=== PATIENT | female | born 1990 | race Hispanic/Latino ===

== ENCOUNTER 2019-01-31 16:29 | Observation (INO) | payer OTHER ==
[~2019-01-31] VITALS: Ht 157.5 cm; Wt 131.5 kg
[2019-01-31 17:49] LABS: APPEARANCE,URINE Clear (CLEAR); BILIRUBIN,URINE Negative (NEGATIVE); COLOR,URINE Yellow (YELLOW); GLUCOSE, URINE (UA) Negative (NEGATIVE); KETONES,URINE Negative (NEGATIVE); LEUKOCYTE ESTERASE ,URINE Negative (NEGATIVE); NITRATE,URINE Negative (NEGATIVE); OCCULT BLOOD,URINE Negative (NEGATIVE); PH,URINE 7.5 (5.0-8.0); PROTEIN,URINE Negative (NEGATIVE)
[2019-01-31 18:40] LABS: BASOPHILS % (AUTO) 0.3 % (0.0-5.0); EOSINOPHILS % (AUTO) 1.5 % (0.0-8.0); HEMATOCRIT 32.7 % (36-48); LYMPHOCYTES % (AUTO) 16.1 % (21.0-51.0); MEAN CORPUSCULAR HEMOGLOBIN 27.1 pg (27.0-33.0); MEAN CORPUSCULAR VOLUME 82.1 fL (79-99); MONOCYTES % (AUTO) 6.2 % (3.0-13.0); NEUTROPHILS % (AUTO) 75.9 % (40.0-77.0); NUCLEATED RED BLOOD CELLS 0.1 % (0.0-0.19); PLATELET COUNT (AUTO) 199 K/uL (130-400); RED BLOOD CELL COUNT(AUTO) 3.98 MIL/uL (4.00-5.50)
[2019-01-31 19:03] LABS: CREATININE 0.4 mg/dL (0.5-1.5); POTASSIUM 3.9 mmol/L (3.5-5.1)
[2019-01-31 19:08] LABS: ALBUMIN 2.2 g/dL (3.5-5.0); BILIRUBIN,TOTAL 0.3 mg/dL (0.2-1.0); TOTAL PROTEIN, SERUM 6.2 g/dL (6.0-8.3); URIC ACID 3.8 mg/dL (2.6-7.2)
[2019-01-31 19:57] LABS: INR 0.89 (0.85-1.15); PARTIAL THROMBOPLASTIN TIME 26.1 SEC (26.3-35.5); PROTHROMBIN TIME 9.4 SEC (9.6-11.6)
[2019-01-31] MEDS ORDERED: LACTATED RINGERS 1000ML 1,000 ML IV PRN (20:16)
[2019-01-31] MEDS ORDERED: PHARMACY COMMUNICATION MISC SCH (20:30)
[2019-01-31 20:55] LABS: AMPHET/METH SCREEN,URINE NEGATIVE (NEGATIVE); BARBITURATE SCREEN, URINE NEGATIVE (NEGATIVE); BENZODIAZEPINES SCREEN,URINE NEGATIVE (NEGATIVE); CANNABINOID SCREEN,URINE NEGATIVE (NEGATIVE); COCAINE SCREEN,URINE NEGATIVE (NEGATIVE); OPIATE SCREEN,URINE NEGATIVE (NEGATIVE); PHENCYCLIDINE SCREEN,URINE NEGATIVE (NEGATIVE)
[2019-02-01 07:19] LABS: RAPID PLASMA REAGIN NONREACTIVE (NONREACTIVE)
== END 2019-01-31 21:16 | disposition home or self-care (01) ==
LOC: EDH 16:29 → LDH 16:52
PROVIDERS: ADMIT Obstetrics & Gynecology; ATTEND Obstetrics & Gynecology
DX: O12.03 Gestational edema, third trimester (principal); O26.893 Other specified pregnancy related conditions, third trimester; R10.31 Right lower quadrant pain; R10.32 Left lower quadrant pain; Z3A.37 37 weeks gestation of pregnancy; Z79.899 Other long term (current) drug therapy
CPT/HCPCS: 36415; 76805; 80053; 80305; 81003; 84550; 85025; 85384; 85610; 85730; 86592; 86701; 86850; 86900; 86901; 87340 ×2; 87390; 99284; G0378 ×4

== ENCOUNTER 2019-02-17 08:06 | Inpatient (IN) | payer OTHER ==
[~2019-02-17] VITALS: Ht 154.9 cm; Wt 125.2 kg
[2019-02-17] MEDS ORDERED: LACTATED RINGERS 1000ML 1,000 ML IV PRN (08:52)
[2019-02-17] MEDS ORDERED: LACTATED RINGERS 1000ML 1,000 ML IV ONE (08:56)
[2019-02-17] MEDS ORDERED: AMPICILLIN 2GM+NS 100ML 100 ML IV ONE (08:56)
[2019-02-17] MEDS ORDERED: AMPICILLIN 2GM+NS 100ML 100 ML IV SCH (09:00)
[2019-02-17 09:08] LABS: APPEARANCE,URINE Clear (CLEAR); BASOPHILS % (AUTO) 0.4 % (0.0-5.0); BILIRUBIN,URINE Negative (NEGATIVE); COLOR,URINE Yellow (YELLOW); GLUCOSE, URINE (UA) Negative (NEGATIVE); HEMATOCRIT 34.1 % (36-48); KETONES,URINE Negative (NEGATIVE); LEUKOCYTE ESTERASE ,URINE Small (NEGATIVE); LYMPHOCYTES % (AUTO) 14.3 % (21.0-51.0); MEAN CORPUSCULAR HEMOGLOBIN 27.2 pg (27.0-33.0); MEAN CORPUSCULAR HGB CONC 34.1 g/dL (32.0-36.0); MEAN CORPUSCULAR VOLUME 79.7 fL (79-99); MONOCYTES % (AUTO) 5.5 % (3.0-13.0); NEUTROPHILS % (AUTO) 78.8 % (40.0-77.0); NITRATE,URINE Negative (NEGATIVE); NUCLEATED RED BLOOD CELLS 0.1 % (0.0-0.19); OCCULT BLOOD,URINE Trace (NEGATIVE); PLATELET COUNT (AUTO) 202 K/uL (130-400); PROTEIN,URINE Negative (NEGATIVE); RED BLOOD CELL COUNT(AUTO) 4.27 MIL/uL (4.00-5.50); RED CELL DISTRIBUTION WIDTH 14.7 % (11.0-15.5)
[2019-02-17 09:19] LABS: BACTERIA,URINE Rare /HPF (None Seen); RBC,URINE 0-1 /HPF (0-1); SQUAMOUS EPITHELIAL CELL,UR Few /HPF (0-2)
[2019-02-17] MEDS ORDERED: CEFAZOLIN SODIUM 1 GM VIAL IVP PRN (09:45)
[2019-02-17] MEDS ORDERED: LACTATED RINGERS 1000ML 1,000 ML IV SCH (09:45)
[2019-02-17 09:46] LABS: INR 0.88 (0.85-1.15); PROTHROMBIN TIME 9.3 SEC (9.6-11.6)
[2019-02-17 09:58] LABS: CREATININE 0.5 mg/dL (0.5-1.5); POTASSIUM 3.9 mmol/L (3.5-5.1)
[2019-02-17 10:03] LABS: ALBUMIN 2.5 g/dL (3.5-5.0); BILIRUBIN,TOTAL 0.4 mg/dL (0.2-1.0); TOTAL PROTEIN, SERUM 6.8 g/dL (6.0-8.3); URIC ACID 4.4 mg/dL (2.6-7.2)
[2019-02-17] MEDS ORDERED: DURAMORPH PF1 MG/ML 10ML AMP IV ONE (10:05)
[2019-02-17] MEDS ORDERED: CEFEPIME HCL 1 GM VIAL IVP ONE (10:20)
[2019-02-17] MEDS ORDERED: DEXTROSE 5 %-0.45 % NACL 1,000 ML IV PRN (11:00)
[2019-02-17] MEDS ORDERED: PROMETHAZINE HCL 25 MG/ML 1ML AMPULE IM PRN (11:00)
[2019-02-17] MEDS ORDERED: OXYTOCIN-LR 20 UNITS/1000 ML 1,000 ML IV PRN (11:00)
[2019-02-17] MEDS ORDERED: MEPERIDINE-PF 75 MG/ML SYG IM PRN (11:00)
[2019-02-17] MEDS ORDERED: SODIUM CHLORIDE 0.9% 10 ML VIAL IVP PRN (11:00)
[2019-02-17] MEDS ORDERED: EPHEDRINE SULFATE 50 MG/ML AMPULE ONE (11:07)
[2019-02-17] MEDS ORDERED: AMPICILLIN 1GM+NS 50ML 50 ML IV SCH (13:00)
[2019-02-17] MEDS ORDERED: IBUPROFEN 800 MG TAB ONE (18:13)
[2019-02-17] MEDS ORDERED: IBUPROFEN 800 MG TAB PO PRN (18:15)
[2019-02-17] MEDS ORDERED: NALOXONE HCL 0.4 MG/1 ML ML IVP PRN ×3 (18:45)
[2019-02-17] MEDS ORDERED: DiphenhydrAMINE HCL 50 MG/ML VIAL IVP PRN (18:45)
[2019-02-17] MEDS ORDERED: EPHEDRINE SULFATE 50 MG/ML AMPULE IVP PRN (18:45)
[2019-02-17] MEDS ORDERED: ONDANSETRON HCL 4 MG/2 ML VIAL IVP PRN (18:45)
--- NOTE | 2019-02-17 20:05 | NUR ---
RECEIVED PT. IN BED AWAKE, ALERT AND ORIENTED X3 LYING SEMI VALDIVIA'S POSITION. SIGNIFICANT OTHER PRESENT AT BEDSIDE. JUAN DELGADO; ANMOL IN NURSERY HERE IN THE ROOM AND ASSESSED THE . PHYSICAL ASSESSMENT DONE TO THE PT.
--- NOTE | 2019-02-17 20:15 | NUR ---
PING CARE DONE. SMALL LOCHIA RUBRA NOTED. FUNDUS FIRM AT THE LEVEL OF THE UMBILICUS. NEW PAD APPLIED. PT. IS COMFORTABLE AT THIS TIME.
[2019-02-17 20:21] VITALS: BP 135/76
--- NOTE | 2019-02-17 22:00 | NUR ---
PT. IS SLEEPING WITHOUT DISTRESS.
--- NOTE | 2019-02-17 23:57 | NUR ---
PT. IS AWAKE AND THE BABY ON THE RIGHT BREAST WITH GOOD LATCH. NO COMPLAINTS OF PAIN ON THE PT.
[2019-02-18] VITALS (8 sets, daily range): BP systolic 100–148; BP diastolic 52–91
--- NOTE | 2019-02-18 01:15 | NUR ---
PT IS C/O PAIN AND SWELLING ON HER IV SITE. DISCONTINUED THE IV AND CLEANSED THE SITE. PT. TOLERATED THE PROCEDURE WELL.
--- NOTE | 2019-02-18 01:20 | NUR ---
RESTART IV LINE ON THE RIGHT ARM BY CONRADO OLMEDO RN. PER STERILE TECHNIQUE. PT. TOLERATED THE PROCEDURE WELL.
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
--- NOTE | 2019-02-18 06:00 | NUR ---
LAB FOR CBC DRAWN BY POCKET GRINDER OPERATOR. PT. TOLERATED THE PROCEDURE WELL.
[2019-02-18 06:14] LABS: HEPATITIS Bs ANTIGEN SCREEN P Negative (Negative)
[2019-02-18 06:43] LABS: HEMATOCRIT 30.2 % (36-48); MEAN CORPUSCULAR HEMOGLOBIN 26.9 pg (27.0-33.0); MEAN CORPUSCULAR HGB CONC 33.1 g/dL (32.0-36.0); MEAN CORPUSCULAR VOLUME 81.2 fL (79-99); PLATELET COUNT (AUTO) 174 K/uL (130-400); RED BLOOD CELL COUNT(AUTO) 3.72 MIL/uL (4.00-5.50); RED CELL DISTRIBUTION WIDTH 14.5 % (11.0-15.5); WHITE BLOOD COUNT (AUTO) 11.3 K/uL (4.8-10.8)
--- NOTE | 2019-02-18 07:05 | NUR ---
REPORT GIVEN TO MAGALIE MCDONALD; RN
[2019-02-18] MEDS ORDERED: BISACODYL 10 MG SUPP.RECT RC PRN (07:30)
[2019-02-18] MEDS ORDERED: DIPHENHYDRAMINE HCL 25 MG CAPSULE PO PRN (07:30)
[2019-02-18] MEDS ORDERED: LANOLIN 30GM OINTMENT TP PRN (07:30)
[2019-02-18] MEDS ORDERED: HYDROCODONE/ACETAMINOPHEN 5/325 MG TAB PO PRN (07:30)
[2019-02-18] MEDS ORDERED: ACETAMINOPHEN EXTRA STRENGTH 500 MG TABLET PO PRN (07:30)
[2019-02-18 08:52] LABS: RAPID PLASMA REAGIN NONREACTIVE (NONREACTIVE)
[2019-02-18] MEDS ORDERED: DIPH,PERTUSS(ACELL),TET VAC/PF 0.5 ML VIAL IM ONE (09:00)
[2019-02-18] MEDS ORDERED: MEASLES/MUMPS/RUBELLA VACCINE, LIVE 0.5 ML/VIAL SQ ONE (09:00)
[2019-02-18] MEDS: SIMETHICONE 80 MG TAB.CHEW PO PRN ×3 (10:54→21:50)
[2019-02-18] MEDS: DOCUSATE SODIUM 100 MG CAP PO SCH ×2 (10:54→21:50)
[2019-02-18] MEDS: IBUPROFEN 600 MG TABLET PO PRN ×2 (10:56→23:11)
[2019-02-18] MEDS ORDERED: PNV1TABL17 PO (11:18)
[2019-02-18] MEDS: ACETAMINOPHEN-CODEINE 300/30MG TAB PO PRN (20:10)
[2019-02-19 03:34] VITALS: BP 111/68
[2019-02-19] MEDS: DOCUSATE SODIUM 100 MG CAP PO SCH (07:46)
[2019-02-19] MEDS: SIMETHICONE 80 MG TAB.CHEW PO PRN (07:46)
[2019-02-19 07:51] VITALS: BP 131/75
[2019-02-19] MEDS: ACETAMINOPHEN-CODEINE 300/30MG TAB PO PRN (07:51)
--- NOTE | 2019-02-19 10:14 | NUR ---
INSTRUCTIONS DISCHARGE INSTRUCTIONS READ AND EXPLAINED TO PATIENT. PRESCRIPTION FOR TYLENOL #3 HANDED TO PATIENT. QUESTIONS INVITED AND ANSWERED. INCISION CARE REVIEWED WITH PATIENT. PATIENT VERBALIZED UNDERSTANDING.
[2019-02-19 11:03] VITALS: BP 146/74
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
== END 2019-02-19 11:40 | disposition home or self-care (01) | DRG 788 ==
LOC: EDH 08:06 → LDH 08:07 → OBSVTOIN 08:07 → WSH 18:31
PROVIDERS: ADMIT Obstetrics & Gynecology; ATTEND Obstetrics & Gynecology
PROC: 10D00Z1 Extraction of Products of Conception, Low, Open Approach (ICD-10-PCS; principal; 2019-02-17 10:27)
DX: O36.63X0 Maternal care for excessive fetal growth, third trimester, not applicable or unspecified (principal); Z37.0 Single live birth; Z3A.39 39 weeks gestation of pregnancy; Z28.21 Immunization not carried out because of patient refusal
CPT/HCPCS: 36415; 76805; 80053; 81001; 84550; 85025; 85027; 85384; 85610; 85730; 86592; 86701; 86850; 86900; 86901; 87340; 87390; A4344; A4450; A4606; G0378; J0290; J0690; J0692; J2274; J2550; J2590; J3490; J7120

== ENCOUNTER 2021-12-19 02:26 | Inpatient (IN) | payer MEDICAID, OTHER ==
[~2021-12-19] VITALS: Ht 160 cm; Wt 136.1 kg
[~2021-12-19 02:26] MED LIST: PNV1TABL17 PO
[2021-12-19] MEDS ORDERED: LACTATED RINGERS 1000ML 1,000 ML IV SCH ×2 (03:00→04:00)
[2021-12-19 03:12] LABS: AMPHET/METH SCREEN,URINE NEGATIVE (NEGATIVE); BARBITURATE SCREEN, URINE NEGATIVE (NEGATIVE); BENZODIAZEPINES SCREEN,URINE NEGATIVE (NEGATIVE); CANNABINOID SCREEN,URINE NEGATIVE (NEGATIVE); COCAINE SCREEN,URINE NEGATIVE (NEGATIVE); OPIATE SCREEN,URINE NEGATIVE (NEGATIVE); PHENCYCLIDINE SCREEN,URINE NEGATIVE (NEGATIVE)
[2021-12-19 03:13] LABS: APPEARANCE,URINE CLEAR (CLEAR); BILIRUBIN,URINE NEGATIVE (NEGATIVE); COLOR,URINE YELLOW (YELLOW); GLUCOSE, URINE (UA) NEGATIVE (NEGATIVE); KETONES,URINE NEGATIVE (NEGATIVE); LEUKOCYTE ESTERASE ,URINE NEGATIVE (NEGATIVE); NITRATE,URINE NEGATIVE (NEGATIVE); OCCULT BLOOD,URINE MODERATE (NEGATIVE); PROTEIN,URINE NEGATIVE (NEGATIVE); UROBILINOGEN,URINE 0.2 mg/dL (0.2-1.0)
[2021-12-19 03:18] LABS: BACTERIA,URINE Few /HPF (None Seen); RBC,URINE 0-1 /HPF (0-1); SQUAMOUS EPITHELIAL CELL,UR Moderate /HPF (0-2)
[2021-12-19] MEDS ORDERED: LACTATED RINGERS 1000ML 1,000 ML IV PRN (03:30)
[2021-12-19 03:56] LABS: BASOPHILS % (AUTO) 0.2 % (0.0-5.0); EOSINOPHILS % (AUTO) 1.3 % (0.0-8.0); HEMATOCRIT 34.3 % (36-48); LYMPHOCYTES % (AUTO) 16.5 % (21.0-51.0); MEAN CORPUSCULAR HEMOGLOBIN 27.4 pg (27.0-33.0); MEAN CORPUSCULAR HGB CONC 33.8 g/dL (32.0-36.0); MEAN CORPUSCULAR VOLUME 81.1 fL (79-99); MONOCYTES % (AUTO) 8.2 % (3.0-13.0); NEUTROPHILS % (AUTO) 73.2 % (40.0-77.0); PLATELET COUNT (AUTO) 241 K/uL (130-400); RED BLOOD CELL COUNT(AUTO) 4.23 MIL/uL (4.00-5.50); WHITE BLOOD COUNT (AUTO) 9.3 K/uL (4.8-10.8)
[2021-12-19] MEDS ORDERED: CEFAZOLIN SODIUM 1 GM VIAL IVP PRN (04:00)
[2021-12-19 04:05] LABS: CREATININE 0.5 mg/dL (0.5-1.5); POTASSIUM 3.8 mmol/L (3.5-5.1)
[2021-12-19 04:06] LABS: INR 0.93 (0.85-1.15); PROTHROMBIN TIME 9.5 SEC (9.6-11.6)
[2021-12-19 04:08] LABS: PARTIAL THROMBOPLASTIN TIME 25.9 SEC (26.3-35.5)
[2021-12-19 04:10] LABS: ALBUMIN 2.4 g/dL (3.5-5.0); TOTAL PROTEIN, SERUM 6.6 g/dL (6.0-8.3); URIC ACID 3.6 mg/dL (2.6-7.2)
[2021-12-19 06:20] VITALS: BP 130/63
[2021-12-19] MEDS: TERBUTALINE SULFATE VIAL 1MG/ML SQ SCH ×2 (07:41→20:20)
[2021-12-19] MEDS ORDERED: OXYTOCIN-LR 20 UNITS/1000 ML 2,000 ML IV ONE (07:52)
[2021-12-19] MEDS ORDERED: MORPHINE PF 100MG/10ML AMP IV ONE (09:01)
[2021-12-19] MEDS ORDERED: FENTANYL CITRATE PF 50 MCG/1 ML 2ML VIAL ONE (09:01)
[2021-12-19] MEDS ORDERED: OXYTOCIN 10 USP UNITS/ML ONE (09:36)
[2021-12-19] MEDS ORDERED: ONDANSETRON 4MG INJ ONE (09:37)
[2021-12-19] MEDS ORDERED: PHENYLEPHRINE HCL 10 MG/ML 1ML VIAL IV ONE (10:14)
[2021-12-19] MEDS ORDERED: NALOXONE HCL 0.4 MG/1 ML ML IVP PRN ×3 (11:00)
[2021-12-19] MEDS ORDERED: LORATADINE 10 MG TABLET PO PRN (11:00)
[2021-12-19] MEDS ORDERED: ONDANSETRON 4MG INJ IVP PRN (11:00)
[2021-12-19] MEDS ORDERED: CALDOLOR 800MG+NS 250ML 250 ML IV PRN (11:00)
[2021-12-19] MEDS ORDERED: DiphenhydrAMINE HCL 50 MG/ML VIAL IVP PRN (11:00)
[2021-12-19] MEDS ORDERED: MEPERIDINE-PF 25 MG/ML SYG IV PRN (11:00)
[2021-12-19] MEDS ORDERED: EPHEDRINE SULFATE 50 MG/ML AMPULE IVP PRN (11:00)
[2021-12-19] MEDS ORDERED: MEPERIDINE-PF 75 MG/ML SYG IM PRN (12:00)
[2021-12-19] MEDS ORDERED: PROMETHAZINE HCL 25 MG/ML 1ML AMPULE IM PRN (12:00)
[2021-12-19] MEDS ORDERED: 0.9%NACL 10ML VIAL IVP PRN (12:00)
[2021-12-19] MEDS ORDERED: OXYTOCIN-LR 20 UNITS/1000 ML 1,000 ML IV PRN (12:00)
[2021-12-19 14:51] VITALS: BP 121/81
[2021-12-19 14:59] LABS: RAPID PLASMA REAGIN NONREACTIVE (NONREACTIVE)
[2021-12-19] MEDS: ACETAMINOPHEN WITH CODEINE 1 TAB TAB PO PRN (15:43)
[2021-12-19 15:45] VITALS: BP 114/77
[2021-12-19 15:51] VITALS: BP 120/78
[2021-12-19] MEDS: DEXTROSE 5 %-0.45 % NACL 1,000 ML IV PRN (18:25)
[2021-12-19 20:10] VITALS: BP 118/58
[2021-12-19 23:06] VITALS: BP 120/61
[2021-12-20] MEDS: ACETAMINOPHEN WITH CODEINE 1 TAB TAB PO PRN ×4 (00:45→20:58)
[2021-12-20] MEDS: DEXTROSE 5 %-0.45 % NACL 1,000 ML IV PRN (02:06)
[2021-12-20 03:10] VITALS: BP 115/53
[2021-12-20 06:50] LABS: HEMATOCRIT 25.4 % (36-48); MEAN CORPUSCULAR HEMOGLOBIN 26.3 pg (27.0-33.0); MEAN CORPUSCULAR HGB CONC 31.9 g/dL (32.0-36.0); MEAN CORPUSCULAR VOLUME 82.5 fL (79-99); RED BLOOD CELL COUNT(AUTO) 3.08 MIL/uL (4.00-5.50); RED CELL DISTRIBUTION WIDTH 14.4 % (11.0-15.5); WHITE BLOOD COUNT (AUTO) 10.7 K/uL (4.8-10.8)
[2021-12-20 07:50] VITALS: BP 115/61
[2021-12-20] MEDS ORDERED: BISACODYL 10 MG SUPP.RECT RC PRN (08:30)
[2021-12-20] MEDS ORDERED: ACETAMINOPHEN 500 MG TABLET PO PRN (08:30)
[2021-12-20] MEDS ORDERED: LANOLIN 30GM OINTMENT TP PRN (08:30)
[2021-12-20] MEDS: DOCUSATE SODIUM 100 MG CAP PO SCH ×2 (08:34→20:57)
[2021-12-20] MEDS: SIMETHICONE 80 MG TAB.CHEW PO PRN ×3 (08:34→20:57)
[2021-12-20] MEDS: HYDROCODONE/ACETAMINOPHEN 5/325 MG TAB PO PRN ×2 (08:35→16:21)
[2021-12-20 10:50] VITALS: BP 116/68
[2021-12-20] MEDS: IBUPROFEN 800 MG TAB PO SCH ×2 (12:35→19:53)
[2021-12-20 16:18] VITALS: BP 115/67
[2021-12-20 19:34] VITALS: BP 104/57
[2021-12-20 23:33] VITALS: BP 128/78
[2021-12-21] MEDS: HYDROCODONE/ACETAMINOPHEN 5/325 MG TAB PO PRN ×2 (02:26→07:30)
[2021-12-21] MEDS: IBUPROFEN 800 MG TAB PO SCH ×2 (04:13→12:13)
[2021-12-21 04:40] VITALS: BP 122/56
[2021-12-21 08:13] VITALS: BP 118/72
[2021-12-21] MEDS: SIMETHICONE 80 MG TAB.CHEW PO PRN (08:33)
[2021-12-21] MEDS: DOCUSATE SODIUM 100 MG CAP PO SCH (08:33)
[2021-12-21 11:12] VITALS: BP 124/72
== END 2021-12-21 14:20 | disposition home or self-care (01) | DRG 788 ==
LOC: EDH 02:26 → LDH 02:27 → OBSVTOIN 02:27 → WSH 14:40
PROVIDERS: ADMIT Internal Medicine; ATTEND Internal Medicine
PROC: 0DNW0ZZ Release Peritoneum, Open Approach (ICD-10-PCS; 2021-12-19)
PROC: 10D00Z1 Extraction of Products of Conception, Low, Open Approach (ICD-10-PCS; principal; 2021-12-19 09:00)
DX: O34.211 Maternal care for low transverse scar from previous cesarean delivery (principal); O36.63X0 Maternal care for excessive fetal growth, third trimester, not applicable or unspecified; Z3A.40 40 weeks gestation of pregnancy; Z37.0 Single live birth; O99.214 Obesity complicating childbirth; K66.0 Peritoneal adhesions (postprocedural) (postinfection); O99.892 Other specified diseases and conditions complicating childbirth
CPT/HCPCS: 36415; 59510; 80053; 80305; 81001; 84550; 85025; 85027; 85384; 85610; 85730; 86592; 86701; 86762; 86850; 86900; 86901; 87340; 87390; A4344; A4606; G0378; J0690; J2175; J2274; J2370; J2405; J2550; J2590; J3010; J3105; J7120

== ENCOUNTER 2024-04-23 20:45 | Emergency (ER) | payer MEDICAID, OTHER ==
[~2024-04-23] VITALS: Ht 152.4 cm; Wt 102.1 kg
[2024-04-23] MEDS: acetaMINOPHEN 500 MG TABLET PO ONE (21:28)
[2024-04-23] MEDS ORDERED: CYCL10TA16 PO (21:48)
[2024-04-23] MEDS ORDERED: KETO10TA2 PO (21:48)
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
[2024-04-23] MEDS: methoCARBamol 500 MG TABLET PO STA (23:11)
[2024-04-23] MEDS: ketOROlac 15MG/ML VIAL (15MG/ML) IM ONE (23:11)
[2024-04-23 23:14] VITALS: BP 141/79; PULSE 80; RESP 18; TEMP 97.8; O2SAT 98
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
== END 2024-04-23 23:22 | disposition home or self-care (01) ==
LOC: EDH 20:45
DX: S16.1XXA Strain of muscle, fascia and tendon at neck level, initial encounter (principal); S39.012A Strain of muscle, fascia and tendon of lower back, initial encounter; S46.911A Strain of unspecified muscle, fascia and tendon at shoulder and upper arm level, right arm, initial encounter; Z90.49 Acquired absence of other specified parts of digestive tract; V89.2XXA Person injured in unspecified motor-vehicle accident, traffic, initial encounter; Y93.89 Activity, other specified; Y92.89 Other specified places as the place of occurrence of the external cause; Y99.8 Other external cause status
CPT/HCPCS: 99285; 70450; 84703; 36415; 73030; 72125; 72131; 96372; J1885